=== PATIENT | male | born 1940 | race Caucasian/White ===

== ENCOUNTER 2016-04-12 15:30 | Inpatient (IN) | payer OTHER ==
[~2016-04-12] VITALS: Ht 182.9 cm; Wt 85.8 kg
[~2016-04-12 15:30] MED LIST: FRS/40 PO; OXYC-164 PO; PROC1TAB5 PO
[2016-04-12 18:08] VITALS: BP 119/72; PULSE 92; TEMP 37; O2SAT 92
[2016-04-12] MEDS ORDERED: LEVOFLOXACIN / D5W 750 MG in PREMIXED IN D5W 150 ML IV SCH (18:30)
[2016-04-12] MEDS ORDERED: ALUMINUM/MAGNESIUM/SIMETH (MAALOX MAX) 30 ML UDC PEG PRN (18:30)
[2016-04-12] MEDS ORDERED: ACETAMINOPHEN 325 MG TAB PEG PRN (18:30)
[2016-04-12] MEDS ORDERED: ALBUT/IPRATROP 3MG/0.5MG NEB 3 ML VIAL INH PRN (18:30)
[2016-04-12] MEDS ORDERED: MoRPHine SULFATE 4 MG/ML 1 ML CARP\\VIAL IV PRN (18:45)
[2016-04-12] MEDS ORDERED: MoRPHine SULFATE 2 MG/ML CARP IV PRN (18:45)
[2016-04-12] MEDS ORDERED: METOPROLOL TARTRATE 1 MG/ML VIAL IV PRN (18:45)
[2016-04-12] MEDS ORDERED: LORAZEPAM 2 MG/ML 1 ML VIAL IV PRN ×2 (19:00)
[2016-04-12] MEDS ORDERED: OXYCODONE HCL SOLN 5 MG/5 ML UDC PO PRN (19:15)
[2016-04-12] MEDS ORDERED: LORAZEPAM INJ 1 MG in SYRINGE 0.5 ML IV PRN (19:15)
[2016-04-12] MEDS ORDERED: LORAZEPAM INJ 0.5 MG in SYRINGE 0.75 ML IV PRN (19:15)
[2016-04-12 19:29] VITALS: BP 121/80; PULSE 95; TEMP 36.8; O2SAT 93
[2016-04-12 19:48] LABS: INR 1.2 (0.9-1.1); PARTIAL THROMBOPLASTIN RATIO 1.5; PROTHROMBIN TIME (PATIENT) 12.5 SECONDS (9.0-12.0)
[2016-04-12 20:00] VITALS: BP 121/80; PULSE 95; TEMP 36.8; O2SAT 92; O2SAT 93; Ht 182.9 cm; Wt 85.8 kg
[2016-04-12] MEDS ORDERED: PIPERACILL/TAZOBAC IV 4.5 GM in DEXTROSE 5% 100ML 100 ML IV ONE (20:00)
[2016-04-12] MEDS: ALBUT/IPRATROP 3MG/0.5MG NEB 3 ML VIAL INH SCH (20:00)
[2016-04-12] MEDS ORDERED: PATIENT'S HEIGHT AND/OR WEIGHT NEEDED SCH (20:15)
--- NOTE | 2016-04-12 20:22 | HISTORY & PHYSICAL EXAMINATION ---
DATE OF ADMISSION: 04/12/2016 This is a transfer from [place] for shortness of breath. HISTORY OF PRESENT ILLNESS: Mr. 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 The patient has been involved with Dr. Calvo; however, he had most of his previous workup done in [place]. He saw Dr. Calvo in the fall of 2015. The patient presented to [facility] on the of this month with increased shortness of breath and tachycardia. According to his family members who are present at the bedside; they stated that during that stay he was diagnosed with pneumonia, he had a pleural effusion drained, they are unaware of the etiology and he was started on digoxin for an irregular heartbeat. The patient was discharged on the . He did develop diarrhea during his hospital stay, they did not recall if this was tested for C. diff or not. The patient then was home on oxygen which was a new start for him. He declined on Thursday representing to the [place] [facility]. Today on Thursday we were called because of the patient being in atrial flutter with rapid ventricular response and increasing shortness of breath. The patient was transferred to our facility where I met him in his hospital room. In his hospital room, he was comfortable. His heart rate looked to be in the 90s on the monitor. The patient had a repetitive throat clearing type of cough which reminded me of aspiration. The patient was recently helpful with his history, giving me his medication doses and his daughter was helpful to fill in some of the blanks. He currently is comfortable. He is mildly short of breath. He is on 3 liters nasal cannula. PAST MEDICAL HISTORY: As mentioned squamous cell carcinoma of the tongue base diagnosed in 2011 at [place] with resection and treatment with chemotherapy and radiation. The patient, at one point in time, was discussing to have a liver met. He has a known pulmonary met on most recent PET scan. He also has some paratracheal lymph nodes which are likely suspicious for malignancy. OTHER MEDICAL HISTORY: Includes his irregular heart rate that he had most recently diagnosed as the pneumonia, left total hip arthroplasty. He also had an esophageal rupture after attempt at dilatation necessitating PEG tube placement and continuing his Jevity tube feeds at home. HOME MEDICATIONS: Oxygen 2 liters a day, oxycodone 10 q. 12, Prilosec powder 20 b.i.d., digoxin 0.25 and Ceftin 250 b.i.d. SOCIAL HISTORY: The patient is both a smoker and drinker, is not on any in the most recent past. FAMILY HISTORY: Positive for cancer, both breasts and other malignancies in his family. REVIEW OF SYSTEMS: Other than the HPI, he has been recently "bloating up" after using his tube feeds. His tube feeds typically are Jevity 1.5 two cans 3 times a day. He also uses six 16 ounce bottles of water in a day span. Other than that, he has been having foul smelling frequent bowel movements which are a bit loose, 2 to 3 a day. PHYSICAL EXAMINATION: GENERAL: He is a pleasant gentleman. He appears his stated age. VITAL SIGNS: Temperature is 37, pulse is 92 and irregular, respiratory rate 18, BP 119/72, O2 sats 92 on 4 liters on that in the chart. HEENT: PERRL. Oropharynx is dry. There are no exudates or thrush. NECK: Without lymphadenopathy. Trachea is midline. CARDIAC: Regular without murmurs. LUNGS: Have coarse rhonchorous breath sounds at the bases. There is no focal air loss. There is prolonged expiratory phase reminiscent of COPD. His A-port in his left upper chest is nontender at site of vascular access. ABDOMEN: Normoactive bowel sounds and soft. He has a PEG in the mid abdomen in the epigastric area; it does not have any drainages, nonerythematous. EXTREMITIES: Without edema (the daughter noted some edema this morning to the sock line, but is not present now). NEUROLOGIC: He is awake, alert and appropriate. Cranial nerves II-XII are intact. He has equal symmetrical strength and sensation. There are no physical signs of any neurological deficits currently. LABORATORY DATA: From [place] include; a white count of 10, H\\T\\H 11 and 33, platelet count 150, BUN and creatinine 22 and 0.91, glucose 157. LFTs are okay except for slight increase in alkaline phosphatase. Troponin was negative. EKG shows atrial flutter with a heart rate in the 90s. 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 PLAN: For the pneumonia; this likely may be aspiration pneumonia, we will change him to Zosyn intravenously. He will be on aspiration precautions. He will have speech evaluation. We will maintain his tube feedings as listed above with the Jevity and the water flushes. For his atrial flutter, we will maintain his digoxin. We will add p.r.n. metoprolol for rapid heart rate. We will get an echocardiogram. We will get cardiology consult to determine the best combination of medications to control his rate. Regarding his history of GERD and his Prilosec powder, we will ask the pharmacy if they have that. He did not tolerate Prevacid in the past. Regarding his pain control, we will use oxycodone q. 12 via his PEG and we will add p.r.n. morphine if needed. DVT prevention; we will use heparin although enoxaparin may be superior. Dr. Calvo already evaluated for the direction of care. The patient reportedly was supposed to have a current visit. This may be a springboarding to discuss whether we should consider palliative type of care plan for the future. Regarding his diarrhea, C. diff will be sent. [facility]
[2016-04-12] MEDS ORDERED: FIBERSOURCE HN 1000ML BAG PO SCH ×2 (21:00)
[2016-04-12] MEDS ORDERED: HEPARIN SOD 5000 UNIT/0.5 ML CARP SQ SCH (21:00)
[2016-04-12] MEDS ORDERED: PIPERACILL/TAZOBAC CONSULT ACTIVE PRN (21:00)
[2016-04-12] MEDS ORDERED: LANSOPRAZOLE SOLUTAB 15 MG PEG SCH (21:00)
[2016-04-12 23:43] VITALS: BP 121/75; PULSE 92; TEMP 36.5; O2SAT 91
[2016-04-13] MEDS ORDERED: PIPERACILL/TAZOBAC IV 3.375 GM in DEXTROSE 5% 100ML 100 ML IV SCH (02:00)
[2016-04-13 03:03] VITALS: BP 122/69; PULSE 88; TEMP 36.6; O2SAT 92
[2016-04-13 05:45] LABS: COMPLETE YES; EOS % 1.3 %; HEMATOCRIT 32.6 % (42-52); IG% 0.1 %; LYMPH % 6.9 %; LYMPH ABS # 0.47 K/uL (1.2-3.4); MEAN CELL VOLUME 95.6 fL (80-100); MEAN CORPUSCULAR HGB CONC 33.4 g/dl (32-36); MEAN PLATELET VOLUME 9.6 fL (7.4-10.4); MONO % 10.1 %; NEUT % 81.6 %; PLATELET COUNT 136 K/uL (130-400); RED BLOOD COUNT 3.41 M/uL (4.7-6.1); WHITE BLOOD COUNT 6.81 K/uL (4.8-10.8)
[2016-04-13 06:16] LABS: BUN/CREATININE RATIO 20.6 (10-20); CALCIUM 8.5 mg/dl (8.5-10.1); CREATININE 1.1 mg/dl (0.60-1.40); POTASSIUM 3.7 mmol/L (3.5-5.1)
[2016-04-13 07:27] VITALS: PULSE 118; O2SAT 80
[2016-04-13] MEDS: ALBUT/IPRATROP 3MG/0.5MG NEB 3 ML VIAL INH SCH (07:27)
[2016-04-13 07:39] VITALS: BP 141/71; PULSE 90; TEMP 36.6; O2SAT 93
[2016-04-13] MEDS ORDERED: OPTIRAY 320 IV PRN (08:00)
--- NOTE | 2016-04-13 08:24 | DIAGNOSTIC IMAGING REPORT ---
CHEST ONE VIEW PORTABLE HISTORY: Atrial Fibrillation COMPARISON: Chest CT 12/10/2015. Outside hospital chest x-ray 04/12/2016. FINDINGS: No pneumothorax. Left jugular Port-A-Cath terminates in the SVC. There are low lung volumes. Small bilateral pleural effusions and bibasilar densities remain unchanged. Diffuse interstitial and vascular thickening consistent with pulmonary edema. This is also unchanged. There are scattered linear densities within the lungs consistent with subsegmental atelectasis. The heart is mildly enlarged. IMPRESSION: No change in the pulmonary edema and small bilateral pleural effusions. Bibasilar densities persist. This may represent atelectasis from the pleural effusions or a pneumonia. Electronically signed by: Omero Quarles M.D. 04/13/2016 8:23 AM Dictated Date/Time: 04/13/2016 8:21 AM
[2016-04-13] MEDS ORDERED: FUROSEMIDE INJ 40 MG in SYRINGE 0 ML IV SCH (08:30)
[2016-04-13] MEDS ORDERED: POTASSIUM CHLORIDE 20 MEQ TABCR PO ONE (08:30)
[2016-04-13] MEDS ORDERED: ENOXAPARIN 40 MG/0.4 ML SYR SQ SCH (09:00)
[2016-04-13] MEDS ORDERED: NOREPINEPHRINE BIT INJ 8 MG in DEXTROSE 5% 500ML 500 ML IV PRN (09:15)
--- NOTE | 2016-04-13 09:34 | DIAGNOSTIC IMAGING REPORT ---
CHEST CT WITH CONTRAST CT DOSE: 396.43 mGy.cm HISTORY: Head and neck cancer. eval for progressive metastatic disease TECHNIQUE: Multiaxial CT images of the chest were performed following the intravenous administration of contrast. COMPARISON: PET CT 01/07/2016. Chest CT 12/10/2015. FINDINGS: There is respiratory motion artifact resulting in suboptimal evaluation. No pneumothorax. Left jugular central venous catheter terminates in the SVC. No change in 1 cm right upper lobe pulmonary nodule. No suspicious lytic or blastic osseous lesions. Left postthoracotomy changes are again noted. Moderate right pleural effusion has increased in size. Trace left pleural effusion remains unchanged. Interstitial thickening has progressed. There are patchy left upper lobe and left lower lobe airspace opacities which are new from the prior study. There is also bilateral perihilar airspace opacities. The right lower lobe consolidation favors compressive atelectasis from the pleural effusion. 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 Calcified subcarinal lymph nodes. Trace pericardial effusion has increased in size. Stable prominent mediastinal lymph nodes. A right paratracheal lymph node is similar in size. This measures 8 mm in short axis diameter. The main pulmonary arteries are patent. Stable 2 cm hypodense lesion within the right hepatic dome. A percutaneous gastrostomy tube is partially visualized. A few punctate left posterior pleural base calcifications remain unchanged. Mild thickening and enhancement within the right basilar pleura. IMPRESSION: 1. Interval increase in size in the moderate right pleural effusion. There is mild thickening and enhancement within the right basilar pleura. Therefore, this is concerning for metastatic disease with an associated malignant pleural effusion. 2. Consolidation of the right lower lobe favors compressive atelectasis from the pleural effusion. 3. Trace left pleural effusion, unchanged. 4. Stable prominent mediastinal lymph nodes. 5. Progression of the interstitial thickening with bilateral perihilar airspace opacities. This favors pulmonary edema. However, superimposed pneumonia could also a similar appearance. 6. Stable 1 cm right upper lobe pulmonary nodule. Electronically signed by: Omero Quarles M.D. 04/13/2016 9:33 AM Dictated Date/Time: 04/13/2016 9:20 AM
[2016-04-13] MEDS ORDERED: SODIUM BICARB 8.4% INJ 50 MEQ/50 ML SYR IV ONE (12:16)
[2016-04-13] MEDS ORDERED: SODIUM CHLORIDE 0.9% 10ML FLUSH IV ONE (12:16)
[2016-04-13] MEDS ORDERED: SODIUM CHLORIDE 0.9% 500 ML BAG IV ONE (12:16)
[2016-04-13] MEDS ORDERED: ATROPINE SULFATE 0.1 MG/ML 10 ML SYR IV ONE (12:16)
--- NOTE | 2016-04-13 12:25 | ECHOCARDIOGRAM REPORT ---
*NOTICE TO RECEIVING DEMOCRAT AGENCY This information is strictly Confidential and protected under [place] law. [place] law prohibits you from making any further disclosure of this information unless further disclosure is expressly permitted by the written consent of the person to whom it pertains or is authorized by law. A general authorization for the release of medical or other information is not sufficient for this purpose. Hospital accepts no responsibility if the information is made available to any other person, INCLUDING THE PATIENT. Interpretation Summary * Name: ARPIT CAPELLAN Study Date: 04/13/2016 06:53 AM BP: 141/71 mmHg * Patient Location: [facility]\S\N283\S\1 HR: 96 * : 1940 (M/d/yyyy) Gender: Male Height: 72 in * Age: 75 yrs Ethnicity: CA Weight: 187 lb * Ordering Physician: Gagan Durant * Performed By: Doug Wang RDCS * * Reason For Study: A-flutter * BSA: 2.1 m2 * -- Conclusions -- * 1. Normal LV size. Mild concentric LVH. * 2. Normal LV systolic function. LVEF 65-70%. No regional wall motion abnormalities. * 3. Normal RV size and function. * 4. Mild calcific aortic stenosis. * 5. Moderate mitral annular calcification with moderate mitral stenosis. Trace MR. * 6. Moderate tricuspid regurgitation. * 7. Borderline pulmonary hypertension. Estimated PASP 35-40 mmHg. Normal CVP. * 8. No prior studies for comparison. Procedure Details * A complete two-dimensional transthoracic echocardiogram was performed (2D, M-mode, Doppler and color flow Doppler). * The study was technically adequate. * The study was technically difficult. Left Ventricle * The left ventricle is grossly normal size. * There is mild concentric left ventricular hypertrophy. * Ejection Fraction = 65-70%. Right Ventricle * The right ventricle is grossly normal size. * The right ventricular systolic function is normal as assessed by tricuspid annular plane systolic excursion (TAPSE) (normal >1.5 cm). Atria * The left atrium is moderately dilated. * The right atrium is moderately dilated. * No ASD detected; PFO is not assessed. Mitral Valve * The mitral valve is grossly normal. * There is moderate mitral annular calcification. * There is moderate mitral stenosis. * There is trace mitral regurgitation. Tricuspid Valve * The tricuspid valve is not well visualized, but is grossly normal. * There is moderate tricuspid regurgitation. * Estimated PASP 35-40 mmHg. Aortic Valve * Mild valvular aortic stenosis. * There is no significant aortic regurgitation. Pulmonic Valve * The pulmonary valve is inadequately visualized, but the Doppler data is adequate for interpretation. * Pulmonic stenosis is absent. * Trace pulmonic valvular regurgitation. Great Vessels * The aortic root and proximal ascending aorta are normal sized. Pericardium/Pleural * There is no pericardial effusion. Great Vessels * Normal inferior vena cava size and collapsability with sniff indicates a normal right atrial pressure of 3 mmHg Left Ventricular Diastolic Function * Diastolic dysfunction, Grade II, consistent with elevated left atrial pressure. MMode 2D Measurements and Calculations IVSd 1.2 cm IVSs 1.5 cm LVIDd 3.0 cm LVIDs 1.8 cm LVPWd 1.1 cm LVPWs 1.4 cm IVS/LVPW 1.2 FS 41.7 % EDV(Teich) 36.0 ml ESV(Teich) 9.3 ml EF(Teich) 74.1 % EDV(cubed) 27.9 ml ESV(cubed) 5.5 ml EF(cubed) 80.2 % % IVS thick 21.5 % % LVPW thick 32.3 % LV mass(C)d 104.4 grams LV mass(C)dI 50.4 grams/m\S\2 LV mass(C)s 82.0 grams LV mass(C)sI 39.6 grams/m\S\2 SV(Teich) 26.7 ml SI(Teich) 12.9 ml/m\S\2 SV(cubed) 22.4 ml SI(cubed) 10.8 ml/m\S\2 Ao root diam 3.7 cm Ao root area 10.8 cm\S\2 ACS 0.91 cm LA dimension 3.6 cm asc Aorta Diam 3.4 cm LA/Ao 0.96 LVOT diam 1.6 cm LVOT area 2.0 cm\S\2 LVAd ap4 19.7 cm\S\2 LVLd ap4 6.6 cm EDV(MOD-sp4) 49.0 ml LVAs ap4 9.6 cm\S\2 LVLs ap4 5.3 cm ESV(MOD-sp4) 14.0 ml EF(MOD-sp4) 71.4 % LVAd ap2 19.8 cm\S\2 LVLd ap2 6.9 cm EDV(MOD-sp2) 47.0 ml LVAs ap2 10.2 cm\S\2 LVLs ap2 5.5 cm ESV(MOD-sp2) 15.0 ml EF(MOD-sp2) 68.1 % SV(MOD-sp4) 35.0 ml SI(MOD-sp4) 16.9 ml/m\S\2 SV(MOD-sp2) 32.0 ml SI(MOD-sp2) 15.5 ml/m\S\2 Doppler Measurements and Calculations MV E max scott 164.5 cm/sec MV A max scott 166.6 cm/sec MV E/A 0.99 MV V2 max 188.0 cm/sec MV max PG 14.1 mmHg MV V2 mean 137.0 cm/sec MV mean PG 9.0 mmHg MV V2 VTI 34.6 cm MVA(VTI) 1.1 cm\S\2 MV dec time 0.27 sec Ao V2 max 257.8 cm/sec Ao max PG 26.7 mmHg Ao max PG (full) 22.1 mmHg Ao V2 mean 155.7 cm/sec Ao mean PG 11.0 mmHg Ao mean PG (full) 8.2 mmHg Ao V2 VTI 38.9 cm ARON(I,A) 1.0 cm\S\2 ARON(I,D) 1.0 cm\S\2 ARON(V,A) 0.85 cm\S\2 ARON(V,D) 0.85 cm\S\2 LV V1 max PG 4.6 mmHg LV V1 mean PG 2.8 mmHg LV V1 max 107.6 cm/sec LV V1 mean 80.0 cm/sec LV V1 VTI 19.4 cm SV(Ao) 422.3 ml SI(Ao) 204.0 ml/m\S\2 SV(LVOT) 39.7 ml SI(LVOT) 19.2 ml/m\S\2 PA V2 max 133.6 cm/sec PA max PG 7.1 mmHg TR max scott 285.1 cm/sec
--- NOTE | 2016-04-13 12:37 | Death Summary ---
Summary of Admission Date Apr 12, 2016 at 18:01 Date & Time of Apr 13, 2016. 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 PT had decline in cxr image and ordered CT chest, after CT chest pt had respiratory arrest, resuscitated and daughter advised no intubation, pt regained pulse and rhythm after meds and CPR but later declined enroute to ICU, attempts were re-begun to resuscitate when daughter at bedside recommended no further resuscitation attempts and the pt was pronounced at 0924 04/13/2016 Prevously in the hospital stay: Pneumonia; likely aspiration pneumonia, Zosyn, aspiration precautions. tube feedings;Jevity with water flushes. Atrial flutter, digoxin. p.r.n.metoprolol for rapid heart rate. echocardiogram Acute diastolic heart failure, clinically Xray appears to have worsened overnight 04/12-, ordered additional lasix, GERD Prilosec powder. Pain control, oxycodone q. 12 via his PEG DVT prevention; enoxaparin Regarding his diarrhea, C. diff negative.
[2016-04-13] MEDS ORDERED: DIGOXIN 0.125 MG TAB PEG SCH (16:00)
--- NOTE | 2016-04-13 16:28 | EMERGENCY ROOM VISIT NOTE ---
History Stated Complaint: AFLUTTER W/HYPOXIA History of Present Illness Patient is a 75-year-old male who is admitted as an inpatient. He was on the [facility] medicine team and was taken to CAT scan to have a CT scan of his chest. Shortly being placed on the CT scan table CODE CURZITO was called. I presented to the CAT scan to find the tech performing CPR. Initially the patient was unresponsive per my evaluation and pulses. CPR was continued. Please see summary. Past Medical/Surgical History Medical Problems: (1) Atrial flutter Social History Smoking Status: Former Smoker Current/Historical Medications Scheduled PRN Furosemide (Lasix), 40 MG PO DAILY PRN for PRN Oxycodone Hcl (Oxycodone Hcl), 1 TAB PO BID PRN for Pain Prochlorperazine Maleate (Compazine), 10 MG PO Q6H PRN for Nausea or Vomiting Allergies Coded Allergies: No Known Allergies (Verified , 09/14/15) Physical Exam Vital Signs Date Time Temp Pulse Resp B/P Pulse Ox O2 Delivery O2 Flow Rate FiO2 04/13/16 07:39 36.6 90 141/71 93 6.0 04/13/16 07:27 118 22 80 Nasal Cannula 4.0 04/13/16 04:27 Nasal Cannula 4.0 04/13/16 03:03 36.6 88 20 122/69 92 Nasal Cannula 4.0 04/13/16 00:35 Nasal Cannula 4.0 04/12/16 23:43 36.5 92 18 121/75 91 Nasal Cannula 4.0 04/12/16 20:00 36.8 95 18 121/80 92 Nasal Cannula 4.0 04/12/16 20:00 93 Nasal Cannula 4.0 04/12/16 19:29 36.8 95 18 121/80 93 Nasal Cannula 4.0 04/12/16 18:08 37.0 92 18 119/72 92 Nasal Cannula 4.0 Physical Exam GENERAL: Laying on CT table below EYE EXAM: normal conjunctiva OROPHARYNX: mucous membranes are dry LUNGS: The chest wall movement HEART: No appreciable sounds ABDOMEN: abdomen soft, with PEG tube in place UPPER EXTREMITIES: upper extremities are grossly normal. LOWER EXTREMITIES: No pitting edema. NEURO EXAM: Unresponsive GCS 3 Medical Decision & Procedures Laboratory Results 04/13/16 05:30 Red Blood Count 3.41, Mean Corpuscular Volume 95.6, Mean Corpuscular Hemoglobin 32.0, Mean Corpuscular Hemoglobin Concent 33.4, Mean Platelet Volume 9.6, Neutrophils (%) (Auto) 81.6, Lymphocytes (%) (Auto) 6.9, Monocytes (%) (Auto) 10.1, Eosinophils (%) (Auto) 1.3, Basophils (%) (Auto) 0.0, Neutrophils # (Auto ) 5.55, Lymphocytes # (Auto) 0.47, Monocytes # (Auto) 0.69, Eosinophils # (Auto ) 0.09, Basophils # (Auto) 0.00 04/13/16 05:30 Test 04/12/16 19:23 04/13/16 05:30 Prothrombin Time 12.5 SECONDS (9.0-12.0) Prothromb Time International Ratio 1.2 (0.9-1.1) Activated Partial Thromboplast Time 37.7 SECONDS (21.0-31.0) Partial Thromboplastin Ratio 1.5 White Blood Count 6.81 K/uL (4.8-10.8) Red Blood Count 3.41 M/uL (4.7-6.1) Hemoglobin 10.9 g/dL (14.0-18.0) Hematocrit 32.6 % (42-52) Mean Corpuscular Volume 95.6 fL (80-100) Mean Corpuscular Hemoglobin 32.0 pg (25-34) Mean Corpuscular Hemoglobin Concent 33.4 g/dl (32-36) Platelet Count 136 K/uL (130-400) Mean Platelet Volume 9.6 fL (7.4-10.4) Neutrophils (%) (Auto) 81.6 % Lymphocytes (%) (Auto) 6.9 % Monocytes (%) (Auto) 10.1 % Eosinophils (%) (Auto) 1.3 % Basophils (%) (Auto) 0.0 % Neutrophils # (Auto) 5.55 K/uL (1.4-6.5) Lymphocytes # (Auto) 0.47 K/uL (1.2-3.4) Monocytes # (Auto) 0.69 K/uL (0.11-0.59) Eosinophils # (Auto) 0.09 K/uL (0-0.5) Basophils # (Auto) 0.00 K/uL (0-0.2) RDW Standard Deviation 48.7 fL (36.4-46.3) RDW Coefficient of Variation 14.1 % (11.5-14.5) Immature Granulocyte % (Auto) 0.1 % Immature Granulocyte # (Auto) 0.01 K/uL (0.00-0.02) Anion Gap 8.0 mmol/L (3-11) Est Creatinine Clear Calc Drug Dose 65.6 ml/min Estimated GFR () 76.8 Estimated GFR (Non- 66.2 BUN/Creatinine Ratio 20.6 (10-20) Calcium Level 8.5 mg/dl (8.5-10.1) Magnesium Level 2.0 mg/dl (1.8-2.4) Troponin I 0.015 ng/ml (0-0.045) Date/Time Source Procedure Growth Status 04/12/16 22:00 Stool C.difficile Toxin B Gene (PCR) - Final No C. difficile toxin B gene detected Complete Medications Administered Medications (Trade) Dose Ordered Sig/Anisha Route Start Time Stop Time Status Last Admin Dose Admin Heparin Sodium (Porcine) (Heparin Sq 5000 Unit/0.5ml) 5,000 unit Q12 SQ 04/12/16 21:00 04/13/16 07:44 DC 04/12/16 22:08 5,000 UNIT Albuterol/ Ipratropium 3 ml 3 ml QIDR INH 04/12/16 20:00 04/13/16 12:17 DC 04/13/16 07:27 3 ML Piperacillin Sod/ Tazobactam Sod/ Dextrose (Zosyn Iv/D5 100ml) 115 ml @ 28.75 mls/ hr Q8H IV 04/13/16 02:00 04/13/16 12:17 DC 04/13/16 02:06 28.75 MLS/HR Enteral Nutritional Formula 480 ml 480 ml TID PO 04/12/16 21:00 04/13/16 12:17 DC 04/12/16 21:55 480 ML Piperacillin Sod/ Tazobactam Sod/ Dextrose (Zosyn Iv/D5 100ml) 120 ml @ 200 mls/hr 2000 ONCE IV 04/12/16 20:00 04/12/16 20:35 DC 04/12/16 21:47 200 MLS/HR Omeprazole (Prilosec - Substitute) 20 mg BID PO 04/12/16 21:00 04/13/16 12:17 DC 04/12/16 21:56 20 MG ECG Indication: other Rate (beats per minute): 120's Rhythm: atrial flutter Change: no significant change Medical Decision Patient is a 75-year-old male who is admitted as an inpatient. He was on the [facility] medicine team and was taken to CAT scan to have a CT scan of his chest. Shortly being placed on the CT scan table CODE CRUZITO was called. I presented to the CAT scan to find the tech performing CPR. Initially the patient was unresponsive per my evaluation and pulseless. He was not intubated initially but was bagged for respiratory. CPR was continued under my direction for at least 3 rounds. Internal medicine attending was at bedside shortly after the start of the code. We were able to have Dr. Durant contact family who notes at that time family did not want him to be intubated but they were okay with compressions. He received 2 epinephrines along with atropine and bicarbonate. We also gave him a liter of fluid. Following the amp of bicarbonate which was given after the 2 rounds of epinephrine and atropine we regained pulses. At that point he appeared to be in a flutter on the monitor. Bedside ultrasound performed by myself confirms cardiac activity. EKG was obtained and showed a flutter with a variable block which consistent with his previous EKGs. We contacted the ICU and a bed was present. Patient was transported was respiratory who is bagging him intermittently to the ICU as having did not want him to be intubated. His heart rate was in the low 100s and pulse was systolically in the 160s. No pressors were started at that time. Code articálvaro was not called due to the uncertainty of his CODE STATUS. Impression Primary Impression: Cardiac arrest Critical Care I have personally spent 35 minutes of critical care time in the direct management of this patient. This includes bedside care, interpretation of diagnostic studies, and testing, discussion with consultants, patient, and family members, and other required patient management activities. This 35 minutes is in excess of all separately billable procedures. Departure Information Referrals Angela Spring M.D. (PCP)
--- NOTE | 2016-04-18 01:50 | Cardiology Follow-Up ---
Cardiology Follow-Up A routine cardiology consultation for atrial flutter was requested by primary service. Pt had prior to consultation.
== END 2016-04-13 12:17 | disposition expired | DRG 177 ==
LOC: C.MED 18:01 → C.MSICU 04-13 09:42
PROVIDERS: ADMIT Family Medicine; ATTEND Internal Medicine
PROC: 5A02115 Assistance with Cardiac Output using Pulsatile Compression, Intermittent (ICD-10-PCS; principal; 2016-04-13)
DX: J69.0 Pneumonitis due to inhalation of food and vomit (principal); I50.31 Acute diastolic (congestive) heart failure; I48.92 Unspecified atrial flutter; C78.00 Secondary malignant neoplasm of unspecified lung; C77.9 Secondary and unspecified malignant neoplasm of lymph node, unspecified; R09.2 Respiratory arrest; R19.7 Diarrhea, unspecified; Z85.810 Personal history of malignant neoplasm of tongue; K21.9 Gastro-esophageal reflux disease without esophagitis; Z99.81 Dependence on supplemental oxygen; Z51.81 Encounter for therapeutic drug level monitoring; Z79.899 Other long term (current) drug therapy; Z93.4 Other artificial openings of gastrointestinal tract status; Z92.21 Personal history of antineoplastic chemotherapy; Z92.3 Personal history of irradiation; Z87.891 Personal history of nicotine dependence; Z80.3 Family history of malignant neoplasm of breast